=== PATIENT | male | born 1945 | race Caucasian/White ===

== ENCOUNTER 2020-12-20 06:05 | Day surgery (SDC) | payer OTHER, BC ==
[2020-12-17 11:33] VITALS: BMI 29.2
[2020-12-20 06:39] VITALS: BP 143/66; PULSE 68; TEMP 97.9
[2020-12-20] MEDS ORDERED: SODIUM CHLORIDE 0.9% P/F 10 ML VIAL IJ ONE (06:55)
[2020-12-20] MEDS ORDERED: ROPIVACAINE HCL 0.5% 30ML VIAL ONE (06:55)
[2020-12-20] MEDS ORDERED: MIDAZOLAM HCL 2 MG/2 ML SINGLE DOSE VIAL ONE (06:55)
[2020-12-20] MEDS ORDERED: KETOROLAC TROMETHAMINE 30 MG/1 ML VIAL ONE (06:55)
[2020-12-20] MEDS ORDERED: ceFAZolin SODIUM 1 GM VIAL ONE (06:55)
[2020-12-20] MEDS ORDERED: DEXAMETHASONE SOD PHOSPHATE 4 MG/1 ML VIAL ONE (06:55)
[2020-12-20] MEDS ORDERED: LIDOCAINE HCL/PF 2% SDV 5ML VIAL ONE (06:55)
[2020-12-20] MEDS ORDERED: ONDANSETRON 4 MG/2 ML VIAL ONE (06:55)
[2020-12-20] MEDS ORDERED: PROPOFOL 20 ML ONE ×2 (06:56)
[2020-12-20] MEDS ORDERED: SUCCINYLCHOLINE CHLORIDE 200 MG/10 ML SYRINGE ONE (06:56)
[2020-12-20] MEDS ORDERED: EPINEPHrine 1:1,000 1 MG/1 ML - 30ML VIAL (INJECTION) ONE (07:09)
== END 2020-12-20 08:35 | disposition home or self-care (01) ==
LOC: FASU 06:05
PROVIDERS: ATTEND Orthopaedic Surgery
PROC: 0LQ14ZZ Repair Right Shoulder Tendon, Percutaneous Endoscopic Approach (ICD-10-PCS; principal; 2020-12-20)
PROC: 0RNJ4ZZ Release Right Shoulder Joint, Percutaneous Endoscopic Approach (ICD-10-PCS; 2020-12-20)
DX: Z53.29 Procedure and treatment not carried out because of patient's decision for other reasons (principal); M67.813 Other specified disorders of tendon, right shoulder
CPT/HCPCS: 82962